=== PATIENT | male | born 1995 | race Caucasian/White ===

== ENCOUNTER 2019-08-22 17:27 | Inpatient (IN) | payer MEDICAID ==
[~2019-08-22] VITALS: Ht 182.9 cm; Wt 64.1 kg
[2019-08-22] MEDS ORDERED: ACETAMINOPHEN 325 MG TABLET PO PRN (21:00)
[2019-08-22] MEDS: HEPARIN 5,000 UNITS/ML, 1ML SQ SCH (21:00)
[2019-08-22] MEDS: NICOTINE 7 MG/24 HR PATCH.TD24 TD SCH (21:00)
[2019-08-22] MEDS: PLEASE ENTER ALLERGIES MC SCH ×2 (21:30→23:29)
[2019-08-22] MEDS: PLEASE ENTER HEIGHT AND WEIGHT MC SCH ×2 (21:30→23:28)
[2019-08-22] MEDS: SODIUM CHLORIDE 0.9% 1,000 ML IV SCH (23:54)
[2019-08-23] VITALS (10 sets, daily range): BP systolic 156–205; BP diastolic 78–130
[2019-08-23] MEDS: ONDANSETRON 2MG/ML, 2ML IVPush PRN (00:20)
[2019-08-23] MEDS: hydrALAzine 20 MG/ML, 1ML IV PRN ×3 (00:25→19:23)
[2019-08-23 00:40] LABS: RAPID INFLUENZA A Negative (Negative); RAPID INFLUENZA B Negative (Negative)
[2019-08-23] MEDS ORDERED: PROMETHAZINE 25 MG/ML, 1ML IM PRN (02:00)
[2019-08-23] MEDS: HEPARIN 5,000 UNITS/ML, 1ML SQ SCH ×3 (04:57→19:36)
[2019-08-23] MEDS: PLEASE ENTER ALLERGIES MC SCH (04:58)
[2019-08-23] MEDS: SODIUM CHLORIDE 0.9% 1,000 ML IV SCH (04:58)
[2019-08-23] MEDS: PLEASE ENTER HEIGHT AND WEIGHT MC SCH (04:58)
[2019-08-23 05:31] LABS: BASOPHILS # (AUTO) 0.04 x10^3/uL (0-0.1); BASOPHILS % (AUTO) 0 % (0-1); EOSINOPHILS # (AUTO) 0.28 x10^3/uL (0-0.4); EOSINOPHILS % (AUTO) 3 % (1-7); LYMPHOCYTES # (AUTO) 1.58 x10^3/uL (1-3.4); LYMPHOCYTES % (AUTO) 14 % (22-44); MD NO; MEAN CORPUSCULAR HGB CONC 32.9 g/dL (33.2-36.2); MEAN CORPUSCULAR VOLUME 88.3 fL (81-97); MEAN PLATELET VOLUME 8.6 fL (7.4-10.4); MONOCYTES # (AUTO) 0.57 x10^3/uL (0.2-0.8); MONOCYTES % (AUTO) 5 % (2-9); NEUTROPHILS % (AUTO) 78 % (42-75); PLATELET COUNT 356 x10^3/uL (130-400); RED BLOOD COUNT 3.96 x10^6/uL (4.38-5.82); RED CELL DISTRIBUTION WIDTH 13.6 % (9.4-14.8)
[2019-08-23 05:41] LABS: ALANINE AMINOTRANSFERASE 14 U/L (12-78); ALBUMIN 2.9 g/dL (3.4-5.0); ANION GAP 9 mmol/L (5-15); CALCIUM 8.7 mg/dL (8.5-10.1); CHLORIDE 109 mmol/L (98-107); CREATININE 8.22 mg/dL (0.7-1.3)
[2019-08-23 05:45] LABS: ALKALINE PHOSPHATASE 70 U/L (45-117); BILIRUBIN,TOTAL 0.3 mg/dL (0.2-1.0); TOTAL PROTEIN 6.5 g/dL (6.4-8.2); TROPONIN I < 0.015 ng/mL (0.000-0.045)
[2019-08-23 06:49] LABS: CREATININE,URINE RANDOM 74.1 mg/dL
[2019-08-23] MEDS: ACETAMINOPHEN 325 MG TABLET PO PRN (08:19)
[2019-08-23] MEDS: SENNA/DOCUSATE TABLET PO SCH (08:21)
[2019-08-23 11:29] LABS: TROPONIN I 0.022 ng/mL (0.000-0.045)
[2019-08-23 11:45] LABS: MICROSCOPIC AUTO
[2019-08-23 15:18] LABS: CALCIUM 9.3 mg/dL (8.5-10.1); RED BLOOD COUNT 4.03 x10^6/uL (4.38-5.82)
[2019-08-23 15:19] LABS: INTERNATIONAL NORMALIZED RATIO 1.02 (0.93-1.1); PROTHROMBIN TIME 10.7 Seconds (9.6-11.5)
[2019-08-23 15:55] LABS: ABSOLUTE RETICS # 0.023 x10^6/uL (0.5-1.5); RETICULOCYTE COUNT % 0.57 % (0.5-1.5)
[2019-08-23] MEDS: NICOTINE 7 MG/24 HR PATCH.TD24 TD SCH (19:38)
[2019-08-23] MEDS ORDERED: AMLODIPINE 5 MG TABLET ONE (20:50)
[2019-08-23] MEDS: TEMAZEPAM 15 MG CAPSULE PO PRN (20:54)
[2019-08-23] MEDS ORDERED: SODIUM CHLORIDE 0.9% 1,000 ML IV SCH (20:57)
[2019-08-23] MEDS ORDERED: AMLODIPINE 5 MG TABLET PO SCH (21:00)
[2019-08-23] MEDS ORDERED: hydrALAzine 20 MG/ML, 1ML IV ONE (23:00)
[2019-08-24] VITALS (10 sets, daily range): BP systolic 133–173; BP diastolic 65–115
[2019-08-24] MEDS: HEPARIN 5,000 UNITS/ML, 1ML SQ SCH ×3 (04:31→20:15)
[2019-08-24 06:37] LABS: BASOPHILS # (AUTO) 0.08 x10^3/uL (0-0.1); BASOPHILS % (AUTO) 1 % (0-1); EOSINOPHILS # (AUTO) 0.29 x10^3/uL (0-0.4); EOSINOPHILS % (AUTO) 3 % (1-7); LYMPHOCYTES % (AUTO) 18 % (22-44); MD NO; MEAN CORPUSCULAR HEMOGLOBIN 29.4 pg (27.5-34.5); MEAN CORPUSCULAR HGB CONC 32.8 g/dL (33.2-36.2); MEAN CORPUSCULAR VOLUME 89.4 fL (81-97); MONOCYTES # (AUTO) 0.72 x10^3/uL (0.2-0.8); MONOCYTES % (AUTO) 6 % (2-9); NEUTROPHILS # (AUTO) 8.36 x10^3/uL (1.8-6.8); NEUTROPHILS % (AUTO) 72 % (42-75); PLATELET COUNT 368 x10^3/uL (130-400); RED CELL DISTRIBUTION WIDTH 13.6 % (9.4-14.8)
[2019-08-24 06:44] LABS: ALANINE AMINOTRANSFERASE 13 U/L (12-78); ALBUMIN 2.7 g/dL (3.4-5.0); ANION GAP 7 mmol/L (5-15); CALCIUM 8.8 mg/dL (8.5-10.1); CHLORIDE 108 mmol/L (98-107); CREATININE 8.29 mg/dL (0.7-1.3)
[2019-08-24 06:47] LABS: ALKALINE PHOSPHATASE 66 U/L (45-117); BILIRUBIN,TOTAL 0.4 mg/dL (0.2-1.0); TOTAL PROTEIN 6.1 g/dL (6.4-8.2)
[2019-08-24] MEDS: SENNA/DOCUSATE TABLET PO SCH (08:15)
[2019-08-24] MEDS: CARVEDILOL 6.25 MG TABLET PO SCH ×2 (08:26→18:37)
[2019-08-24] MEDS: hydrALAzine 20 MG/ML, 1ML IV PRN (09:28)
[2019-08-24] MEDS: ISOSORBIDE DINITRATE 10 MG TABLET PO SCH ×3 (10:03→20:15)
[2019-08-24] MEDS ORDERED: LIDOCAINE 1%, 20ML ONE (11:26)
[2019-08-24] MEDS ORDERED: LIDOCAINE 1%, 10ML ONE (11:26)
[2019-08-24] MEDS ORDERED: MIDAZOLAM 1 MG/ML, 5ML ONE ×2 (11:39)
[2019-08-24] MEDS ORDERED: FLUMAZENIL 0.1 MG/1 ML, 5ML ONE (11:39)
[2019-08-24] MEDS ORDERED: FENTANYL PF 100 MCG/2ML ONE (11:39)
[2019-08-24] MEDS ORDERED: NALOXONE 1 MG/ML, 2ML ONE (11:39)
[2019-08-24] MEDS ORDERED: CEFAZOLIN PMX 1GM/50ML 50 ML ONE (11:44)
[2019-08-24] MEDS ORDERED: ERGOCALCIFEROL 50,000 UNIT CAPSULE PO SCH (13:30)
[2019-08-24] MEDS: NICOTINE 7 MG/24 HR PATCH.TD24 TD SCH (20:15)
[2019-08-25 00:52] VITALS: BP 148/75
[2019-08-25] MEDS: ACETAMINOPHEN 325 MG TABLET PO PRN ×2 (02:38→14:41)
[2019-08-25] MEDS: HEPARIN 5,000 UNITS/ML, 1ML SQ SCH ×3 (04:25→21:05)
[2019-08-25] MEDS: CARVEDILOL 6.25 MG TABLET PO SCH ×2 (06:12→18:14)
[2019-08-25 06:27] LABS: BASOPHILS # (AUTO) 0.08 x10^3/uL (0-0.1); BASOPHILS % (AUTO) 1 % (0-1); EOSINOPHILS # (AUTO) 0.49 x10^3/uL (0-0.4); EOSINOPHILS % (AUTO) 3 % (1-7); LYMPHOCYTES # (AUTO) 1.99 x10^3/uL (1-3.4); LYMPHOCYTES % (AUTO) 12 % (22-44); MD NO; MEAN CORPUSCULAR HEMOGLOBIN 29.8 pg (27.5-34.5); MEAN CORPUSCULAR HGB CONC 33.6 g/dL (33.2-36.2); MEAN CORPUSCULAR VOLUME 88.7 fL (81-97); MEAN PLATELET VOLUME 8.8 fL (7.4-10.4); MONOCYTES # (AUTO) 1.09 x10^3/uL (0.2-0.8); MONOCYTES % (AUTO) 7 % (2-9); NEUTROPHILS # (AUTO) 12.91 x10^3/uL (1.8-6.8); NEUTROPHILS % (AUTO) 78 % (42-75); PLATELET COUNT 360 x10^3/uL (130-400); RED BLOOD COUNT 3.18 x10^6/uL (4.38-5.82); RED CELL DISTRIBUTION WIDTH 13.2 % (9.4-14.8)
[2019-08-25 06:41] LABS: ALBUMIN 2.7 g/dL (3.4-5.0); ANION GAP 4 mmol/L (5-15); CHLORIDE 104 mmol/L (98-107); CREATININE 6.91 mg/dL (0.7-1.3)
[2019-08-25 07:14] VITALS: BP 147/81
[2019-08-25] MEDS ORDERED: DARBEPOETIN 60 MCG/ML SQ SCH (11:00)
[2019-08-25] MEDS: ISOSORBIDE DINITRATE 10 MG TABLET PO SCH ×3 (11:49→21:04)
[2019-08-25] MEDS: SENNA/DOCUSATE TABLET PO SCH (11:50)
[2019-08-25 12:43] VITALS: BP 99/56
[2019-08-25 19:35] VITALS: BP 128/68
[2019-08-25] MEDS: NICOTINE 7 MG/24 HR PATCH.TD24 TD SCH (21:05)
[2019-08-25] MEDS: TEMAZEPAM 15 MG CAPSULE PO PRN (22:09)
[2019-08-26 03:38] VITALS: BP 152/83
[2019-08-26] MEDS: HEPARIN 5,000 UNITS/ML, 1ML SQ SCH ×3 (06:04→21:00)
[2019-08-26] MEDS: CARVEDILOL 6.25 MG TABLET PO SCH ×2 (06:04→18:26)
[2019-08-26 06:15] LABS: BASOPHILS # (AUTO) 0.05 x10^3/uL (0-0.1); BASOPHILS % (AUTO) 0 % (0-1); EOSINOPHILS # (AUTO) 0.31 x10^3/uL (0-0.4); EOSINOPHILS % (AUTO) 3 % (1-7); LYMPHOCYTES # (AUTO) 3.47 x10^3/uL (1-3.4); LYMPHOCYTES % (AUTO) 29 % (22-44); MD NO; MEAN CORPUSCULAR HEMOGLOBIN 29.2 pg (27.5-34.5); MEAN CORPUSCULAR HGB CONC 33.6 g/dL (33.2-36.2); MEAN CORPUSCULAR VOLUME 87.1 fL (81-97); MEAN PLATELET VOLUME 8.3 fL (7.4-10.4); MONOCYTES # (AUTO) 1.12 x10^3/uL (0.2-0.8); MONOCYTES % (AUTO) 9 % (2-9); NEUTROPHILS # (AUTO) 7.23 x10^3/uL (1.8-6.8); NEUTROPHILS % (AUTO) 59 % (42-75); PLATELET COUNT 306 x10^3/uL (130-400); RED BLOOD COUNT 2.98 x10^6/uL (4.38-5.82); RED CELL DISTRIBUTION WIDTH 13.3 % (9.4-14.8)
[2019-08-26 06:26] LABS: ANION GAP 7 mmol/L (5-15); CALCIUM 8.8 mg/dL (8.5-10.1); CHLORIDE 98 mmol/L (98-107); CHOLESTEROL, TOTAL 202 mg/dL (140-239); CREATININE 6.56 mg/dL (0.7-1.3); TRIGLYCERIDES 249 mg/dL (50-200); VLDL CHOLESTEROL 50 mg/dL (0-25)
[2019-08-26 06:28] LABS: CHOL/HDL RATIO 5.2; HDL CHOL % 19 % (26-37); HDL CHOLESTEROL (DIRECT) 39 mg/dL (40-60); LDL CHOLESTEROL,CALCULATED 113 mg/dL (54-169); LDL/HDL RATIO 2.9 (0.5-3.0)
[2019-08-26] MEDS ORDERED: ISOSORBIDE DINITRATE 10 MG TABLET ONE ×3 (09:12→21:06)
[2019-08-26] MEDS: ISOSORBIDE DINITRATE 20 MG TABLET PO SCH ×3 (09:15→21:00)
[2019-08-26 10:45] VITALS: BP 121/67
[2019-08-26] MEDS: SENNA/DOCUSATE TABLET PO SCH (14:58)
[2019-08-26 16:01] LABS: AMPHETAMINE SCREEN, URINE Positive (Negative); BARBITURATE SCREEN, URINE Negative (Negative); BENZODIAZEPINE SCREEN, URINE Negative (Negative); CANNABINOID SCREEN, URINE Negative (Negative); COCAINE SCREEN, URINE Positive (Negative); METHADONE SCREEN, URINE Negative (Negative); OPIATE SCREEN, URINE Positive (Negative)
[2019-08-26 17:10] VITALS: BP 155/79
[2019-08-26 20:04] VITALS: BP 134/79
[2019-08-26] MEDS: NICOTINE 7 MG/24 HR PATCH.TD24 TD SCH (21:00)
[2019-08-26] MEDS: TEMAZEPAM 30 MG CAPSULE PO PRN (21:08)
[2019-08-26] MEDS: POLYETHYLENE GLYCOL 17 GM PACKET PO PRN (21:11)
[2019-08-27 01:12] VITALS: BP 125/66
[2019-08-27] MEDS: HEPARIN 5,000 UNITS/ML, 1ML SQ SCH ×3 (05:00→21:00)
[2019-08-27 05:10] LABS: BASOPHILS # (AUTO) 0.07 x10^3/uL (0-0.1); BASOPHILS % (AUTO) 1 % (0-1); EOSINOPHILS % (AUTO) 4 % (1-7); LYMPHOCYTES # (AUTO) 3.54 x10^3/uL (1-3.4); LYMPHOCYTES % (AUTO) 33 % (22-44); MD NO; MEAN CORPUSCULAR HGB CONC 33.4 g/dL (33.2-36.2); MEAN CORPUSCULAR VOLUME 89.8 fL (81-97); MEAN PLATELET VOLUME 8.4 fL (7.4-10.4); MONOCYTES # (AUTO) 1.25 x10^3/uL (0.2-0.8); MONOCYTES % (AUTO) 12 % (2-9); NEUTROPHILS # (AUTO) 5.45 x10^3/uL (1.8-6.8); NEUTROPHILS % (AUTO) 51 % (42-75); PLATELET COUNT 330 x10^3/uL (130-400); RED BLOOD COUNT 3.03 x10^6/uL (4.38-5.82); RED CELL DISTRIBUTION WIDTH 13.4 % (9.4-14.8)
[2019-08-27] MEDS: CARVEDILOL 6.25 MG TABLET PO SCH ×2 (05:55→17:23)
[2019-08-27 07:57] VITALS: BP 130/70
[2019-08-27] MEDS: ISOSORBIDE DINITRATE 20 MG TABLET PO SCH ×3 (09:00→21:00)
[2019-08-27] MEDS ORDERED: ISOSORBIDE DINITRATE 10 MG TABLET ONE ×3 (09:20→21:36)
[2019-08-27] MEDS: SENNA/DOCUSATE TABLET PO SCH (09:23)
[2019-08-27 09:52] LABS: ANION GAP 8 mmol/L (5-15); CALCIUM 9.3 mg/dL (8.5-10.1); CHLORIDE 96 mmol/L (98-107); CREATININE 6.29 mg/dL (0.7-1.3)
[2019-08-27 12:37] VITALS: BP 123/67
[2019-08-27 19:19] VITALS: BP 130/73
[2019-08-27] MEDS: NICOTINE 7 MG/24 HR PATCH.TD24 TD SCH (21:00)
[2019-08-27 21:38] VITALS: BP 137/83
[2019-08-27] MEDS: TEMAZEPAM 30 MG CAPSULE PO PRN (21:59)
[2019-08-28 01:23] VITALS: BP 125/67
[2019-08-28] MEDS: HEPARIN 5,000 UNITS/ML, 1ML SQ SCH ×3 (05:00→21:00)
[2019-08-28 06:05] LABS: ANION GAP 8 mmol/L (5-15); CALCIUM 8.8 mg/dL (8.5-10.1); CHLORIDE 95 mmol/L (98-107); CREATININE 7.74 mg/dL (0.7-1.3)
[2019-08-28] MEDS: CARVEDILOL 6.25 MG TABLET PO SCH ×2 (06:32→17:15)
[2019-08-28 07:24] VITALS: BP 136/77
[2019-08-28] MEDS ORDERED: ISOSORBIDE DINITRATE 10 MG TABLET ONE ×2 (08:15→16:05)
[2019-08-28] MEDS: SENNA/DOCUSATE TABLET PO SCH (08:22)
[2019-08-28] MEDS: POLYETHYLENE GLYCOL 17 GM PACKET PO PRN ×2 (08:23→21:48)
[2019-08-28] MEDS: ISOSORBIDE DINITRATE 20 MG TABLET PO SCH ×3 (08:23→21:35)
[2019-08-28] MEDS: ONDANSETRON 2MG/ML, 2ML IVPush PRN ×2 (13:48→22:38)
[2019-08-28 13:58] VITALS: BP 133/74
[2019-08-28] MEDS: BISACODYL 10 MG SUPP PR PRN ×2 (15:00→21:37)
[2019-08-28] MEDS: NICOTINE 7 MG/24 HR PATCH.TD24 TD SCH (21:00)
[2019-08-28 21:39] VITALS: BP 126/71
[2019-08-28] MEDS: TEMAZEPAM 30 MG CAPSULE PO PRN (22:48)
[2019-08-29 00:59] VITALS: BP 116/70
[2019-08-29] MEDS: HEPARIN 5,000 UNITS/ML, 1ML SQ SCH ×2 (04:55→13:00)
[2019-08-29] MEDS: CARVEDILOL 6.25 MG TABLET PO SCH (05:58)
[2019-08-29 07:09] VITALS: BP 144/75
[2019-08-29 08:33] LABS: BASOPHILS # (AUTO) 0.04 x10^3/uL (0-0.1); BASOPHILS % (AUTO) 1 % (0-1); EOSINOPHILS # (AUTO) 0.31 x10^3/uL (0-0.4); EOSINOPHILS % (AUTO) 4 % (1-7); LYMPHOCYTES # (AUTO) 2.73 x10^3/uL (1-3.4); LYMPHOCYTES % (AUTO) 32 % (22-44); MD NO; MEAN CORPUSCULAR HGB CONC 33.6 g/dL (33.2-36.2); MEAN CORPUSCULAR VOLUME 89.3 fL (81-97); MEAN PLATELET VOLUME 7.8 fL (7.4-10.4); MONOCYTES # (AUTO) 0.78 x10^3/uL (0.2-0.8); MONOCYTES % (AUTO) 9 % (2-9); NEUTROPHILS # (AUTO) 4.74 x10^3/uL (1.8-6.8); NEUTROPHILS % (AUTO) 55 % (42-75); PLATELET COUNT 439 x10^3/uL (130-400); RED BLOOD COUNT 2.88 x10^6/uL (4.38-5.82); RED CELL DISTRIBUTION WIDTH 13.3 % (9.4-14.8)
[2019-08-29 08:42] LABS: ALANINE AMINOTRANSFERASE 14 U/L (12-78); ANION GAP 10 mmol/L (5-15); CALCIUM 9.1 mg/dL (8.5-10.1); CHLORIDE 92 mmol/L (98-107); CREATININE 9.14 mg/dL (0.7-1.3)
[2019-08-29 08:45] LABS: ALKALINE PHOSPHATASE 69 U/L (45-117); BILIRUBIN,TOTAL 0.6 mg/dL (0.2-1.0); TOTAL PROTEIN 7.3 g/dL (6.4-8.2)
[2019-08-29] MEDS: ISOSORBIDE DINITRATE 20 MG TABLET PO SCH (09:00)
[2019-08-29] MEDS ORDERED: MAGNESIUM CITRATE 300ML ORAL SOL PO ONE (11:00)
[2019-08-29] MEDS: ONDANSETRON 2MG/ML, 2ML IVPush PRN (11:26)
[2019-08-29] MEDS ORDERED: HYDR-3342 PO (11:41)
[2019-08-29] MEDS ORDERED: ISOS20TA58 PO (11:41)
[2019-08-29] MEDS ORDERED: CARV6.2512 PO (11:41)
[2019-08-29] MEDS ORDERED: ACET325T26 PO (11:42)
[2019-08-29] MEDS ORDERED: ISOSORBIDE DINITRATE 10 MG TABLET ONE (12:27)
[2019-08-29] MEDS: SENNA/DOCUSATE TABLET PO SCH (12:30)
[2019-08-29 12:49] VITALS: BP 116/72
[2019-08-29] MEDS ORDERED: TRAM50TA2 PO (14:34)
== END 2019-08-29 15:49 | disposition home or self-care (01) | DRG 462 ==
LOC: 4EST 20:31
PROVIDERS: ADMIT Internal Medicine; ATTEND Internal Medicine
PROC: 5A1D70Z Performance of Urinary Filtration, Intermittent, Less than 6 Hours Per Day (ICD-10-PCS; principal; 2019-08-24)
PROC: 0TB13ZX Excision of Left Kidney, Percutaneous Approach, Diagnostic (ICD-10-PCS; 2019-08-24)
PROC: 0JH63XZ Insertion of Tunneled Vascular Access Device into Chest Subcutaneous Tissue and Fascia, Percutaneous Approach (ICD-10-PCS; 2019-08-24)
PROC: 02HV33Z Insertion of Infusion Device into Superior Vena Cava, Percutaneous Approach (ICD-10-PCS; 2019-08-24)
PROC: B5181ZA Fluoroscopy of Superior Vena Cava using Low Osmolar Contrast, Guidance (ICD-10-PCS; 2019-08-24)
PROC: B548ZZA Ultrasonography of Superior Vena Cava, Guidance (ICD-10-PCS; 2019-08-24)
PROC: 5A1D70Z Performance of Urinary Filtration, Intermittent, Less than 6 Hours Per Day (ICD-10-PCS; 2019-08-25)
PROC: 5A1D70Z Performance of Urinary Filtration, Intermittent, Less than 6 Hours Per Day (ICD-10-PCS; 2019-08-26)
PROC: 5A1D70Z Performance of Urinary Filtration, Intermittent, Less than 6 Hours Per Day (ICD-10-PCS; 2019-08-29)
DX: N02.9 Recurrent and persistent hematuria with unspecified morphologic changes (principal); N17.9 Acute kidney failure, unspecified; E87.5 Hyperkalemia; N25.0 Renal osteodystrophy; N18.6 End stage renal disease; F14.10 Cocaine abuse, uncomplicated; I16.0 Hypertensive urgency; F17.210 Nicotine dependence, cigarettes, uncomplicated; D64.9 Anemia, unspecified; K59.00 Constipation, unspecified; F19.10 Other psychoactive substance abuse, uncomplicated; F15.10 Other stimulant abuse, uncomplicated; Z99.2 Dependence on renal dialysis; Z83.3 Family history of diabetes mellitus; Z91.19 Patient's noncompliance with other medical treatment and regimen
CPT/HCPCS: 0399T; 36415; 50200; 74018; 76770; 76937; 77001; 77012; 80048; 80053; 80061; 80069; 80074; 80307; 81001; 82306; 82310; 82436; 82570; 82728; 83540; 83550; 83735; 83970; 84100; 84133; 84300; 84484; 84550; 85025; 85045; 85610; 86480; 86706; 87400; 88300; 90935; 93306; 93975; 99156; 99157; G0378; J0690; J0881; J1644; J2250; J2405; J2550; J3010; C1750; J0360; J1642; J2310; J7030

== ENCOUNTER 2019-09-07 12:37 | Emergency (ER) | payer MEDICAID ==
[~2019-09-07] VITALS: Ht 182.9 cm; Wt 68.7 kg
[~2019-09-07 12:37] MED LIST: ACET325T26 PO; CARV6.2512 PO; HYDR-3342 PO; ISOS20TA58 PO; TRAM50TA2 PO
[2019-09-07] MEDS ORDERED: HYDROcodone/APAP 5/325 TABLET PO ONE (13:00)
[2019-09-07] MEDS ORDERED: HYDROcodone/APAP 5/325 TABLET ONE (13:29)
[2019-09-07 13:35] LABS: BASOPHILS # (AUTO) 0.05 x10^3/uL (0-0.1); BASOPHILS % (AUTO) 0 % (0-1); EOSINOPHILS # (AUTO) 0.61 x10^3/uL (0-0.4); EOSINOPHILS % (AUTO) 5 % (1-7); LYMPHOCYTES # (AUTO) 2.34 x10^3/uL (1-3.4); LYMPHOCYTES % (AUTO) 18 % (22-44); MD NO; MEAN CORPUSCULAR HEMOGLOBIN 30.3 pg (27.5-34.5); MEAN CORPUSCULAR HGB CONC 33.1 g/dL (33.2-36.2); MEAN CORPUSCULAR VOLUME 91.3 fL (81-97); MEAN PLATELET VOLUME 7.7 fL (7.4-10.4); MONOCYTES # (AUTO) 1.09 x10^3/uL (0.2-0.8); MONOCYTES % (AUTO) 8 % (2-9); NEUTROPHILS # (AUTO) 9.19 x10^3/uL (1.8-6.8); NEUTROPHILS % (AUTO) 69 % (42-75); PLATELET COUNT 498 x10^3/uL (130-400); RED BLOOD COUNT 2.82 x10^6/uL (4.38-5.82); RED CELL DISTRIBUTION WIDTH 15.2 % (9.4-14.8)
[2019-09-07 13:41] LABS: ALBUMIN 3.3 g/dL (3.4-5.0); ANION GAP 7 mmol/L (5-15); CALCIUM 8.9 mg/dL (8.5-10.1); CHLORIDE 100 mmol/L (98-107)
--- NOTE | 2019-09-07 14:02 | NUR ---
PT HERE FOR PAIN AT DIALYSIS CATH SITE, DRAINAGE UNDER DRESSING. DRESSING CHANGED BY BREAK RN, PT MEDICATED FOR PAIN BY BREAK RN.
[2019-09-07 14:04] VITALS: BP 138/75
== END 2019-09-07 14:29 | disposition home or self-care (01) ==
LOC: ED 14:09
DX: R07.89 Other chest pain (principal); N18.6 End stage renal disease; F17.200 Nicotine dependence, unspecified, uncomplicated; M54.5 Low back pain
CPT/HCPCS: 36415; 71046; 80048; 82040; 85025; 99284

== ENCOUNTER 2020-10-19 19:18 | Emergency (ER) | payer MEDICAID ==
[~2020-10-19] VITALS: Ht 182.9 cm; Wt 70.0 kg
--- NOTE | 2020-10-19 19:33 | NUR ---
PT CALLED EMS . STATES HE HAS HAD A WAITE SINCE LAST NIGHT 8\10. GOT DIALYSIS TODAY TOOK OFF 3000ML. STATES HE HAS BEEN HAVING HTN FOR A FEW WEEKS HIGH 200 SYSTOLIC PT IN BED TELE SR. O2 MONITOR ON.
[2020-10-19] MEDS ORDERED: ACETAMINOPHEN 500 MG TABLET PO ONE (20:00)
[2020-10-19] MEDS ORDERED: SODIUM CHLORIDE FLUSH 10ML SYR IVF ONE (20:00)
[2020-10-19] MEDS ORDERED: hydrALAzine 20 MG/ML, 1ML IV ONE (20:00)
[2020-10-19] MEDS ORDERED: hydrALAzine 20 MG/ML, 1ML ONE (20:03)
[2020-10-19] MEDS ORDERED: ACETAMINOPHEN 500 MG TABLET ONE (20:06)
--- NOTE | 2020-10-19 20:13 | NUR ---
PT IN BED GAVE H2O, ADMIN MEDS
[2020-10-19 20:15] LABS: BASOPHILS % (AUTO) 1 % (0-1); EOSINOPHILS % (AUTO) 2 % (1-7); LYMPHOCYTES % (AUTO) 16 % (22-44); MEAN CORPUSCULAR HEMOGLOBIN 31.8 pg (27.5-34.5); MEAN CORPUSCULAR HGB CONC 34.9 g/dL (33.2-36.2); MEAN PLATELET VOLUME 8.3 fL (7.4-10.4); MONOCYTES % (AUTO) 9 % (2-9); NEUTROPHILS % (AUTO) 72 % (42-75); PLATELET COUNT 291 x10^3/uL (130-400); RED BLOOD COUNT 3.07 x10^6/uL (4.38-5.82); RED CELL DISTRIBUTION WIDTH 14.5 % (9.4-14.8)
[2020-10-19 20:20] LABS: MD NO
[2020-10-19 20:27] LABS: ALANINE AMINOTRANSFERASE 27 U/L (12-78); ALBUMIN 3.8 g/dL (3.4-5.0); ANION GAP 6 mmol/L (5-15); CALCIUM 8.5 mg/dL (8.5-10.1); CHLORIDE 99 mmol/L (98-107); CREATININE 9.71 mg/dL (0.7-1.3)
[2020-10-19 20:29] LABS: ALKALINE PHOSPHATASE 77 U/L (45-117); BILIRUBIN,TOTAL 0.5 mg/dL (0.2-1.0); TOTAL PROTEIN 7.6 g/dL (6.4-8.2)
--- NOTE | 2020-10-19 20:39 | NUR ---
PT IN BED RESTING, PAIN 12/22. BP 140/95
[2020-10-19 21:50] VITALS: BP 156/68
== END 2020-10-19 21:55 | disposition home or self-care (01) ==
LOC: ED 20:19
DX: I12.0 Hypertensive chronic kidney disease with stage 5 chronic kidney disease or end stage renal disease (principal); N18.6 End stage renal disease; G43.909 Migraine, unspecified, not intractable, without status migrainosus; F17.210 Nicotine dependence, cigarettes, uncomplicated
CPT/HCPCS: 36415; 70450; 80053; 85025; 96374; 99284; 99406; J0360; 96372

== ENCOUNTER 2021-01-18 11:29 | Emergency (ER) | payer MEDICARE, MEDICAID ==
[~2021-01-18] VITALS: Ht 182.9 cm; Wt 70.0 kg
[2021-01-18 11:38] VITALS: BP 223/145
--- NOTE | 2021-01-18 11:42 | NUR ---
sts took bp meds this am. as
[2021-01-18] MEDS ORDERED: PATI8.4P PO (11:43)
--- NOTE | 2021-01-18 12:04 | NUR ---
CLINICAL RADIOLOGIST: PT SCREAMING AND ROCKING BED IN ROOM, SECURITY CALLED FOR ASSISTANCE
--- NOTE | 2021-01-18 12:09 | NUR ---
SECURITY AT BEDSIDE, PT REFUSING CARE, PIV REMOVED. PT LEFT AMA
== END 2021-01-18 12:12 | disposition left against medical advice (07) ==
LOC: ED 12:06
DX: R52 Pain, unspecified (principal); Z53.21 Procedure and treatment not carried out due to patient leaving prior to being seen by health care provider